=== PATIENT | female | born 1960 | race Hispanic/Latino ===

== ENCOUNTER → 2023-07-10 | Outpatient (CLI) | payer MEDICAID ==
[~2023-07-10] MED LIST: AMIO200T44 PO; APIX5TAB PO; BENZ200C53 PO; CARV3.12 PO; CEFD300C3 PO; CETI10TA57 PO; CYCL-309 PO; FAMO40TA7 PO; FLUT50BL2 IH; GABA800T9 PO; HYDR-4064 PO; LORA10TA7 PO; METO50TA9 PO; ONDA-105 PO; PANT40TA54 PO; POTA10CA85 PO; SACU1TAB PO; TORS20TA4 PO
[2023-07-10 12:38] LABS: CREATININE 0.9 mg/dL (0.5-1.5); POTASSIUM 4.4 mmol/L (3.5-5.1)
== END | disposition home or self-care (01) ==
LOC: LAB 10:02
PROVIDERS: ATTEND Internal Medicine Cardiovascular Disease
DX: I50.22 Chronic systolic (congestive) heart failure (principal); I42.8 Other cardiomyopathies
CPT/HCPCS: 36415; 80048; 83880

== ENCOUNTER → 2023-08-25 | Outpatient (CLI) | payer MEDICAID ==
[~2023-08-25] VITALS: Ht 162.6 cm; Wt 94.2 kg
[~2023-08-25] MED LIST changes: -CARV3.12 PO; -CEFD300C3 PO; +HYDR-4068 PO; +IVAB5TAB PO; +LEVA1.2542 IH; +METO-391 PO; +METO-408 PO; -METO50TA9 PO; +NALO4SPR3 NS; +SPIR25TA6 PO; +SUCR1TAB2 PO
[2023-08-25 10:33] LABS: BASOPHILS # (AUTO) 0.05 K/uL (0.00-0.20); BASOPHILS % (AUTO) 0.7 % (0.0-5.0); EOSINOPHILS # (AUTO) 0.22 K/uL (0.00-0.70); IMMATURE GRANULOCYTE ABSOLUTE 0.01 K/uL (0-1); LYMPHOCYTES % (AUTO) 26.6 % (21.0-51.0); MEAN CORPUSCULAR HEMOGLOBIN 27.4 pg (27.0-33.0); MEAN CORPUSCULAR HGB CONC 32.9 g/dL (32.0-36.0); MEAN CORPUSCULAR VOLUME 83.5 fL (79-99); MONOCYTES # (AUTO) 0.9 K/uL (0.1-1.0); MONOCYTES % (AUTO) 12.3 % (3.0-13.0); NEUTROPHILS # (AUTO) 4.2 K/uL (1.8-7.7); NEUTROPHILS % (AUTO) 57.3 % (40.0-77.0); PLATELET COUNT (AUTO) 224 K/uL (130-400); RED BLOOD CELL COUNT(AUTO) 5.03 MIL/uL (4.00-5.50); RED CELL DISTRIBUTION WIDTH 18.3 % (11.0-15.5); WHITE BLOOD COUNT (AUTO) 7.3 K/uL (4.8-10.8)
[2023-08-25 10:40] LABS: CREATININE 1.1 mg/dL (0.5-1.5); POTASSIUM 4.3 mmol/L (3.5-5.1)
[2023-08-25 10:43] LABS: INR <= 0.93 (0.85-1.15)
[2023-08-25 10:44] LABS: PARTIAL THROMBOPLASTIN TIME 28.6 SEC (26.3-35.5)
[2023-08-25 10:52] VITALS: BP 96/60; PULSE 123; RESP 21
== END | disposition home or self-care (01) ==
LOC: EDSTATUS 09:00 → DAH 10:00
PROVIDERS: ATTEND Internal Medicine Cardiovascular Disease
DX: Z01.818 Encounter for other preprocedural examination (principal); I47.10 Supraventricular tachycardia, unspecified; R94.31 Abnormal electrocardiogram [ECG] [EKG]
CPT/HCPCS: 36415; 80048; 85025; 85610; 85730; 93005

== ENCOUNTER 2023-11-01 06:40 | Day surgery (SDC) | payer MEDICAID ==
[2023-11-01] VITALS (12 sets, daily range): BP systolic 74–111; BP diastolic 46–74; PULSE 67–84; RESP 10–16
[~2023-11-01] VITALS: Ht 160 cm; Wt 96.2 kg
[~2023-11-01 06:40] MED LIST changes: +0.9%NACL 1000ML 1,000 ML IV ONE; -AMIO200T44 PO; -BENZ200C53 PO; -CETI10TA57 PO; -CYCL-309 PO; -FAMO40TA7 PO; -HYDR-4064 PO; -LEVA1.2542 IH; -LORA10TA7 PO; -METO-391 PO; -NALO4SPR3 NS; -ONDA-105 PO; -POTA10CA85 PO; +POTA10CA95 PO; -SACU1TAB PO; -SUCR1TAB2 PO
[2023-11-01] MEDS: 0.9%NACL 1000ML 1,000 ML IV ONE (07:46)
[2023-11-01] MEDS ORDERED: PROPOFOL 10 MG/ML 20ML VIAL IV ONE (09:59)
== END 2023-11-01 11:45 | disposition home or self-care (01) ==
LOC: ENDO 06:40 → DAH 06:40 → ENDO 11:45
PROVIDERS: ATTEND Internal Medicine Gastroenterology
DX: R13.10 Dysphagia, unspecified (principal); K29.50 Unspecified chronic gastritis without bleeding; K31.89 Other diseases of stomach and duodenum; K21.00 Gastro-esophageal reflux disease with esophagitis, without bleeding; K44.9 Diaphragmatic hernia without obstruction or gangrene; K59.04 Chronic idiopathic constipation; K57.30 Diverticulosis of large intestine without perforation or abscess without bleeding; I10 Essential (primary) hypertension; M79.7 Fibromyalgia; F32.9 Major depressive disorder, single episode, unspecified; Z95.0 Presence of cardiac pacemaker; Z79.1 Long term (current) use of non-steroidal anti-inflammatories (NSAID); Z88.8 Allergy status to other drugs, medicaments and biological substances; Z79.891 Long term (current) use of opiate analgesic; Z79.899 Other long term (current) drug therapy; Z98.890 Other specified postprocedural states
CPT/HCPCS: 43239; 82948; J7030; J3490; A4620; A4215 ×2; A4223; A4222; A4221; A4663; A4606; J2704

== ENCOUNTER → 2024-03-06 | Outpatient (CLI) | payer MEDICAID ==
[~2024-03-06] MED LIST changes: -0.9%NACL 1000ML 1,000 ML IV ONE; +GABA-1555 PO; -GABA800T9 PO
== END | disposition home or self-care (01) ==
LOC: SHCH 08:25
PROVIDERS: ATTEND Internal Medicine Cardiovascular Disease
DX: I44.2 Atrioventricular block, complete (principal); I50.22 Chronic systolic (congestive) heart failure
CPT/HCPCS: 93306

== ENCOUNTER → 2024-06-28 | Outpatient (CLI) | payer MEDICAID ==
--- NOTE | 2024-06-28 13:53 | HMCIMG ---
CHEST 2VWS REASON: AICD LEAD MALFUNCTION COMPARISON: 08/29/2023 FINDINGS: Two views of the chest were obtained. Lungs are clear. Heart size is normal. There is no pulmonary vascular congestion. Mediastinum and bony thorax appear unremarkable. There is a bipolar pacemaker in place. IMPRESSION: No acute process seen in the chest.
== END | disposition home or self-care (01) ==
LOC: RAH 11:44
PROVIDERS: ATTEND Internal Medicine Cardiovascular Disease
DX: T82.110A Breakdown (mechanical) of cardiac electrode, initial encounter (principal); I42.9 Cardiomyopathy, unspecified; Z95.0 Presence of cardiac pacemaker; Y77.2 Prosthetic and other implants, materials and accessory ophthalmic devices associated with adverse incidents
CPT/HCPCS: 71046